=== PATIENT | female | born 1995 | race Caucasian/White ===

== ENCOUNTER 2022-10-21 01:23 | Inpatient (IN) | payer BC ==
[2022-10-21 01:54] VITALS: BMI 25.8
[2022-10-21] MEDS ORDERED: hydrALAZINE 20 MG/ML VIAL SLOW IVP PRN ×2 (02:30→18:36)
[2022-10-21] MEDS ORDERED: Methylergonovine 0.2 MG/ML VIAL IM PRN (02:30)
[2022-10-21] MEDS ORDERED: Carboprost 250 MCG/ML AMP IM PRN (02:30)
[2022-10-21] MEDS ORDERED: Misoprostol 200 MCG TAB RC PRN (02:30)
[2022-10-21] MEDS ORDERED: NS w/ Oxytocin 30 units 500 ML IVPB SCH (02:30)
[2022-10-21] MEDS ORDERED: Lactated Ringer's 1,000 ML IV SCH (02:30)
[2022-10-21] MEDS ORDERED: Lidocaine 1% (PF) 30 ML VIAL SC PRN (02:30)
[2022-10-21] MEDS ORDERED: Ibuprofen 800 MG TAB PO PRN (02:30)
[2022-10-21] MEDS ORDERED: Promethazine HCl 25 MG/ML VIAL IM PRN ×2 (02:30→09:16)
[2022-10-21] MEDS ORDERED: Butorphanol Tartrate 1 MG/ML VIAL SLOW IVP PRN (02:30)
[2022-10-21] MEDS ORDERED: Acetaminophen 500 MG TAB PO PRN (02:30)
[2022-10-21] MEDS ORDERED: Ondansetron PF 4 MG/2 ML Vial IVP PRN ×3 (02:30→18:36)
[2022-10-21 03:25] LABS: Hemoglobin 12.3 g/dL (12.0-15.5); Mean Corpuscular HGB CONC 34.2 g/dL (32.0-36.0); Mean Corpuscular Hemoglobin 31.5 pg (27.0-33.0); Mean Corpuscular Volume 92.1 fl (81.6-98.3); Mean Platelet Volume 10.6 fl (7.4-10.4); Platelet Count 237 10x3/uL (150-450); RBC Distribution Width 13.4 % (11.5-14.5); Red Blood Cell (RBC) Count 3.91 10x6/uL (3.90-5.03); White Blood Cell (WBC) Count 11.1 10x3/uL (3.5-10.5)
[2022-10-21 04:02] LABS: SARS-CoV-2 NAA Rapid Test Not Detected (NotDetected)
[2022-10-21 04:05] LABS: HBSAg Index 0.14 S/CO (0-0.99); Hep B Surf Ag Non-Reactive S/CO (NonReactive)
[2022-10-21 04:07] LABS: Syphilis Antibody Nonreactive (Nonreactive); Syphilis Antibody Index 0.04 S/CO (<1.00 Non-Reactive)
[2022-10-21] MEDS ORDERED: NS w/ Oxytocin 30 units 500 ML ONE (06:14)
[2022-10-21] MEDS ORDERED: Fentanyl 2 mcg/Bup 0.1% Cadd 100 ML ONE (08:17)
[2022-10-21] MEDS ORDERED: ePHEDrine Sulfate 50 MG/10 ML VIAL SLOW IVP PRN (09:16)
[2022-10-21] MEDS ORDERED: diphenhydrAMINE 50 MG/ML VIAL IVP PRN (09:16)
[2022-10-21] MEDS ORDERED: Acetaminophen 325 MG TAB PO PRN ×2 (09:16→18:39)
[2022-10-21] MEDS ORDERED: Moisturizing Cream (Eucerin) 113 GM JAR TOP PRN (09:16)
[2022-10-21] MEDS ORDERED: Lactated Ringer's 500 ML IV PRN (09:16)
[2022-10-21] MEDS ORDERED: Naloxone HCl 0.4 mg/ml Vial IVP PRN ×2 (09:16)
[2022-10-21] MEDS ORDERED: Communication Order-Pharmacy FS SCH (09:30)
[2022-10-21] MEDS ORDERED: Fentanyl 2 mcg/Bupivacaine 0.1% Cassette 100 ML EPIDURAL SCH (09:30)
[2022-10-21] MEDS ORDERED: Zolpidem Tartrate 5 MG TAB PO PRN (18:36)
[2022-10-21] MEDS ORDERED: Benzocaine-Menthol 82.5 ML CAN TOP PRN (18:36)
[2022-10-21] MEDS ORDERED: Milk Of Magnesia 30 ML UDCUP PO PRN (18:36)
[2022-10-21] MEDS ORDERED: diphenhydrAMINE 25 MG CAP PO PRN (18:36)
[2022-10-21] MEDS ORDERED: Preparation H Ointment 28 GM TUBE PR PRN (18:36)
[2022-10-21] MEDS ORDERED: Lanolin Ointment 7 GM TUBE TOP PRN (18:36)
[2022-10-21] MEDS ORDERED: HYDROcodone/Acetaminophen 5/325 mg Tablet PO PRN ×2 (18:36)
[2022-10-21] MEDS ORDERED: Bisacodyl 10 MG SUPP PR PRN (18:36)
[2022-10-21] MEDS ORDERED: Misoprostol 200 MCG TAB VAG PRN (18:36)
[2022-10-21] MEDS ORDERED: Boostrix 0.5 ML (Tdap) VIAL (>/=7 yrs of age) IM ONE (18:36)
[2022-10-21] MEDS ORDERED: Witch Hazel-Glycerin 1 EACH JAR TOP PRN (18:39)
[2022-10-21] MEDS ORDERED: NS w/ Oxytocin 30 units 500 ML IV SCH (18:45)
[2022-10-21] MEDS: Docusate 100 MG CAP PO SCH (21:35)
[2022-10-22] MEDS: Ibuprofen 800 MG TAB PO SCH ×3 (03:54→19:26)
[2022-10-22 05:01] LABS: Mean Corpuscular HGB CONC 34.1 g/dL (32.0-36.0); Mean Corpuscular Volume 93.9 fl (81.6-98.3); Mean Platelet Volume 10.8 fl (7.4-10.4); Platelet Count 225 10x3/uL (150-450); RBC Distribution Width 13.2 % (11.5-14.5); Red Blood Cell (RBC) Count 3.44 10x6/uL (3.90-5.03); White Blood Cell (WBC) Count 16.6 10x3/uL (3.5-10.5)
[2022-10-22] MEDS: Ferrous Sulfate 325 MG TAB PO SCH ×2 (07:26→17:11)
[2022-10-22] MEDS: Prenatal Vitamin 1 TAB PO SCH (08:50)
[2022-10-22] MEDS: Docusate 100 MG CAP PO SCH ×2 (08:50→19:26)
[2022-10-23] MEDS: Ibuprofen 800 MG TAB PO SCH (05:40)
[2022-10-23] MEDS: Docusate 100 MG CAP PO SCH (07:46)
[2022-10-23] MEDS: Prenatal Vitamin 1 TAB PO SCH (07:46)
[2022-10-23] MEDS: Ferrous Sulfate 325 MG TAB PO SCH (07:46)
[2022-10-23 08:44] VITALS: BP 114/62; TEMP 98.1
[2022-10-23] MEDS ORDERED: Ibuprofen 800 MG TAB PO SCH (14:00)
== END 2022-10-23 12:20 | disposition home or self-care (01) | DRG 806 ==
LOC: CSHLD/OP 01:23 → CSHLD 02:11 → CSHPP 20:32
PROVIDERS: ADMIT Obstetrics & Gynecology; ATTEND Obstetrics & Gynecology
PROC: 10E0XZZ Delivery of Products of Conception, External Approach (ICD-10-PCS; principal; 2022-10-21)
PROC: 0KQM0ZZ Repair Perineum Muscle, Open Approach (ICD-10-PCS; 2022-10-21)
PROC: 0UQMXZZ Repair Vulva, External Approach (ICD-10-PCS; 2022-10-21)
DX: O42.02 Full-term premature rupture of membranes, onset of labor within 24 hours of rupture (principal); O99.354 Diseases of the nervous system complicating childbirth; Z37.0 Single live birth; Z3A.38 38 weeks gestation of pregnancy; Z20.822 Contact with and (suspected) exposure to COVID-19; G43.909 Migraine, unspecified, not intractable, without status migrainosus; Z79.899 Other long term (current) drug therapy; O36.63X0 Maternal care for excessive fetal growth, third trimester, not applicable or unspecified; O71.82 Other specified trauma to perineum and vulva; O70.1 Second degree perineal laceration during delivery
CPT/HCPCS: 36415; 51702; 85027; 86780; 86850; 86900; 86901; 87340; 99285; J2405; J2590; U0002